=== PATIENT | female | born 1990 | race Hispanic/Latino ===

== ENCOUNTER 2018-01-22 16:57 | Emergency (ER) | payer OTHER ==
[~2018-01-22] VITALS: Ht 162.6 cm; Wt 61.2 kg
[2018-01-22 17:38] LABS: ABSOLUTE BASOPHIL COUNT 0 /CUMM (0.0-0.2); ABSOLUTE EOSINOPHIL COUNT 0.1 /CUMM (0.0-0.7); ABSOLUTE GRANULOCYTE CT 2.9 /CUMM (1.4-6.5); ABSOLUTE LYMPH COUNT 2.4 /CUMM (1.2-3.4); ABSOLUTE MONOCYTE COUNT 0.6 /CUMM (0.10-0.60); BASOPHIL % 0.5 % (0.0-2.0); GRANULOCYTE % 48.8 % (42.2-75.2); MEAN CORPUSCULAR HGB 29.8 PG (27.0-31.0); MEAN CORPUSCULAR VOLUME 87.5 FL (81.0-99.0); MEAN PLATELET VOLUME 8.9 FL (7.4-10.4); PLATELET COUNT 265 /CUMM (130-400); RBC DISTRIBUTION WIDTH 13.1 % (11.5-14.5); RED BLOOD CELL CT 4.45 /CUMM (4.20-5.40)
--- NOTE | 2018-01-22 18:50 | CT SCAN REPORT ---
EXAMINATION: CT HEAD WITHOUT CONTRAST CLINICAL INFORMATION: Severe headache COMPARISON: None TECHNIQUE: Contiguous axial imaging was performed from the skull base to vertex without intravenous administration of contrast. DLP: 613.13 mGy-cm FINDINGS: There is no evidence of acute intracranial hemorrhage or territorial infarction. No abnormal mass effect or midline shift is seen. Nelson to white matter differentiation is well preserved. No extra-axial fluid collections are identified. The ventricles are normal in size. There is no abnormal attenuation within the brain parenchyma. The osseous structures and soft tissues are normal. The mastoid air cells and visualized portions of the paranasal sinuses are well aerated. IMPRESSION: No acute intracranial pathology.
[2018-01-22 20:27] VITALS: BP 122/75
--- NOTE | 2018-01-22 20:53 | ED GENERAL ADULT ---
History of Present Illness General Chief Complaint: General Adult Stated Complaint: KNIGHT/+V X1 MONTH Source: patient, old records, friend Exam Limitations: no limitations Vital Signs & Intake/Output Vital Signs & Intake/Output Vital Signs Date Time Temp Pulse Resp B/P B/P Pulse O2 O2 Flow FiO2 Mean Ox Delivery Rate 01/22 2027 76 18 122/75 98 Room Air 01/22 1706 97.0 76 15 138/76 98 Room Air Room Air Allergies Coded Allergies: shrimp (Severe, ANAPHYLAXIS 01/22/18) Reconcile Medications Butalb/Acetaminophen/Caffeine (Mqpkxn-Ixjecfhf-Rouc 50-325-40) 50 MG-325 MG-40 MG TABLET 1 TAB PO Q6H PRN headache Famotidine (Pepcid) 20 MG TABLET 1 TAB PO BID gastritis Ondansetron (Zofran Odt) 4 MG TAB.RAPDIS 1 TAB SL TID PRN n/v Triage Note: PT TO ED FOR C/C OF HEADACHE X 1 MONTH OFF AND ON. HEADACHE IS WORSE IN THE MORNING. REPORTS NAUSEA AND VOMITING. DENIES PHOTOSENSITIVITY. Triage Nurses Notes Reviewed? yes Onset: 1 month Duration: week(s):, intermittent Timing: recent history Severity: moderate, severe Modifying Factors: Improves With: medication. Worsens With: eating. LMP (ages 10-50): unknown : No Patient currently breastfeeds: No HPI: Several months prior to admission patient complains of epigastric pain especially after eating and at night associated with nausea and vomiting. 1 month prior to admission patient complains of daily headaches moderate to severe relieved with Aleve associated with nausea weakness. Prior to admission she had severe nausea headache and felt like she was going to pass out. She denies fever chills diarrhea chest pain cough shortness breath dysuria rash bleeding family history of migraines and strokes. Past History Travel History Traveled to [place] past 21 day No Medical History Any Pertinent Medical History? none Neurological: NONE EENT: NONE Cardiovascular: NONE Respiratory: NONE Gastrointestinal: NONE Hepatic: NONE Renal: NONE Musculoskeletal: NONE Psychiatric: NONE Endocrine: NONE Blood Disorders: NONE Cancer(s): NONE Surgical History Surgical History: non-contributory Psychosocial History What is your primary language Maltese Tobacco Use: Never used ETOH Use: denies use Illicit Drug Use: denies illicit drug use Family History Hx Contributory? No Review of Systems Review of Systems Constitutional: Reports: see HPI, weakness. EENTM: Reports: no symptoms. Respiratory: Reports: no symptoms. Cardiovascular: Reports: no symptoms. GI: Reports: see HPI, abdominal pain, nausea. Genitourinary: Reports: no symptoms. Musculoskeletal: Reports: no symptoms. Skin: Reports: no symptoms. Neurological/Psychological: Reports: see HPI, headache. Hematologic/Endocrine: Reports: no symptoms. Immunologic/Allergic: Reports: no symptoms. All Other Systems: Reviewed and Negative Physical Exam Physical Exam General Appearance: well developed/nourished, alert, awake, anxious, moderate distress, thin Head: atraumatic, normal appearance Eyes: Bilateral: normal appearance, PERRL, EOMI. Ears, Nose, Throat: normal pharynx, normal ENT inspection, hearing grossly normal Neck: normal inspection, supple, full range of motion, no midline tenderness Respiratory: normal breath sounds, chest non-tender, no respiratory distress, quiet respiration, lungs clear Cardiovascular: regular rate/rhythm, normal peripheral pulses, norml femoral pulses equa Peripheral Pulses: 4+ carotid (R), 4+ carotid (L) Gastrointestinal: normal bowel sounds, soft, non-tender, no organomegaly Back: normal inspection, normal range of motion, no vertebral tenderness Extremities: normal inspection, normal capillary refill, normal range of motion, no edema Neurologic/Psych: no motor/sensory deficits, awake, alert, oriented x 3, normal gait, normal mood/affect, 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 Skin: intact, normal color, warm/dry Lymphatic: no anterior cervical naya Core Measures ACS in differential dx? No CVA/TIA Diagnosis: No Sepsis Present: No Sepsis Focused Exam Completed? No Progress Differential Diagnoses I considered the following diagnoses in my evaluation of the patient: Gastritis migraine cluster headache tension headache reflux Plan of Care: Orders Procedure Date/time Status URINALYSIS 01/22 1714 Complete LIPASE 01/22 1714 Complete HUMAN BETA HCG SCREEN 01/22 1714 Complete COMPREHENSIVE METABOLIC PANEL 01/22 1714 Complete CBC WITHOUT DIFFERENTIAL 01/22 1714 Complete EKG 01/22 1714 Active Current Medications Sig/Rosenda Start time Last Medication Dose Stop Time Status Admin Acetaminophen 1,000 MG ONCE ONE 01/22 2045 CAN (Ofirmev) 01/22 2046 Famotidine 20 MG ONCE ONE 01/22 2045 CAN (Pepcid) 01/22 2046 Metoclopramide HCl 5 MG ONCE ONE 01/22 2045 CAN (Reglan) 01/22 2046 Sodium Chloride 1,000 ML BOLUS ONE 01/22 2045 CAN (Normal Saline 0.9%) 01/23 2144 Laboratory Tests 01/22/18 1737: Urine Color STRAW, Urine Clarity CLEAR, Urine pH 7.0, Ur Specific [place] 1.010, Urine Protein NEG, Urine Ketones NEG, Urine Nitrite NEG, Urine Bilirubin NEG, Urine Urobilinogen 0.2, Ur Leukocyte Esterase NEG, Ur Microscopic EXAM NOT REQUIRED, Urine Hemoglobin NEG, Urine Glucose NEG 01/22/18 172: Anion Gap 11, Estimated GFR > 60, BUN/Creatinine Ratio 23.3, Glucose 107 H, Calcium 9.4, Total Bilirubin 0.4, AST 23, ALT 31, Alkaline Phosphatase 61, Total Protein 7.3, Albumin 4.2, Globulin 3.1, Albumin/Globulin Ratio 1.4, Lipase 74, Total Beta HCG NEGATIVE, CBC w Diff NO MAN DIFF REQ, RBC 4.45, MCV 87.5, MCH 29.8, MCHC 34.0, RDW 13.1, MPV 8.9, Gran % 48.8, Lymphocytes % 39.6, Monocytes % 10.1 H, Eosinophils % 1.0, Basophils % 0.5, Absolute Granulocytes 2.9, Absolute Lymphocytes 2.4, Absolute Monocytes 0.6, Absolute Eosinophils 0.1, Absolute Basophils 0 Diagnostic Imaging: Viewed by Me: CT Scan. Discussed w/RAD: CT Scan. Radiology Impression: no acute abnormality Initial ED EKG: none Comments: Patient declined intravenous medications/fluids for symptoms Departure Departure Time of Disposition: 2058 Disposition: HOME OR SELF CARE Condition: Stable Clinical Impression Primary Impression: Gastritis Secondary Impressions: Cluster headache syndrome Referrals: Patient Has No Primary Care Dr (PCP/Family) Departure Forms: Customer Survey General Discharge Information RELEASE- WORK Prescriptions: Current Visit Scripts Famotidine (Pepcid) 1 TAB PO BID #60 TAB Ref 1 Butalb/Acetaminophen/Caffeine (Mupnyl-Jlgakwdp-Lnvw 50-325-40) 1 TAB PO Q6H PRN headache #30 TAB Ondansetron (Zofran Odt) 1 TAB SL TID PRN n/v #10 TAB Critical Care Note Critical Care Note Critical Care Time: non-applicable
[2018-01-22] MEDS ORDERED: PEPCID20 M1 PO (21:02)
[2018-01-22] MEDS ORDERED: BUTALB-ACETAMI1 EACH PO (21:02)
[2018-01-22] MEDS ORDERED: ZOFRAN ODT4 M1 SL (21:02)
== END 2018-01-22 21:14 ==
LOC: ERH 16:57
PROVIDERS: Physician Assistant Medical
DX: K29.70 Gastritis, unspecified, without bleeding (principal); G44.009 Cluster headache syndrome, unspecified, not intractable
CPT/HCPCS: 81003; 93005; 93010; J3101